=== PATIENT | male | born 1965 | race Caucasian/White ===

== ENCOUNTER 2017-04-19 09:38 | Day surgery (SDC) | payer BC ==
[~2017-04-19] VITALS: Ht 172.7 cm; Wt 99.7 kg
[~2017-04-19 09:38] MED LIST: PERCOCET 5/31 TABLET PO
[2017-04-19 10:22] VITALS: BP 138/96
[2017-04-19 15:05] VITALS: BP 120/85
[2017-04-19 16:30] VITALS: BP 113/77
== END 2017-04-19 16:30 | disposition home or self-care (01) ==
LOC: SDC 09:38
PROC: 0QSJ04Z Reposition Right Fibula with Internal Fixation Device, Open Approach (ICD-10-PCS; principal; 2017-04-19)
DX: S82.831A Other fracture of upper and lower end of right fibula, initial encounter for closed fracture (principal); W01.0XXA Fall on same level from slipping, tripping and stumbling without subsequent striking against object, initial encounter; Y93.K9 Activity, other involving animal care; Y92.007 Garden or yard of unspecified non-institutional (private) residence as the place of occurrence of the external cause; M77.31 Calcaneal spur, right foot; F17.200 Nicotine dependence, unspecified, uncomplicated
CPT/HCPCS: 73610; 76000; C1713; J0131; J0690; J1100; J1170; J2250; J2765; J3010; S0020

== ENCOUNTER → 2017-08-06 | Outpatient (CLI) | payer BC ==
[~2017-08-06] VITALS: Ht 172.7 cm; Wt 99.8 kg
[~2017-08-06] MED LIST changes: +PEG 3350 ELEC4000 ML PO
== END | disposition home or self-care (01) ==
LOC: AMB 07:00
PROC: 0DJD8ZZ Inspection of Lower Intestinal Tract, Via Natural or Artificial Opening Endoscopic (ICD-10-PCS; principal; 2017-08-06)
DX: Z12.11 Encounter for screening for malignant neoplasm of colon (principal); Z80.0 Family history of malignant neoplasm of digestive organs; R63.5 Abnormal weight gain; Z68.34 Body mass index [BMI] 34.0-34.9, adult; E80.4 Gilbert syndrome; H91.92 Unspecified hearing loss, left ear; G47.33 Obstructive sleep apnea (adult) (pediatric); E78.6 Lipoprotein deficiency
CPT/HCPCS: J2250; J3010